=== PATIENT | male | born 1970 | race Two or more races ===

== ENCOUNTER 2022-07-07 19:03 | Emergency (ER) | payer OTHER ==
[2022-07-07] MEDS ORDERED: Sodium Chloride 0.9% 1,000 ML IV ONE ×2 (19:13→20:50)
[2022-07-07] MEDS ORDERED: Prochlorperazine 10 MG/2 ML SDV IVPUSH ONE (19:13)
[2022-07-07] MEDS ORDERED: Ketorolac 30 MG/ML SDV IVPUSH ONE (19:13)
[2022-07-07] MEDS ORDERED: Sodium Chloride 0.9% 10 ML Syringe FLUSH PRN (19:13)
[2022-07-07] MEDS ORDERED: HYDROmorphone 1 MG/ML Syringe IVPUSH ONE (19:13)
[2022-07-07] MEDS ORDERED: Sodium Chloride 0.9% 2.5 ML Syringe FLUSH PRN (19:13)
[2022-07-07 19:45] LABS: BASOPHILS PERCENT AUTO 0.1 % (0.0-1.5); EOSINOPHILS PERCENT AUTO 0.2 % (0.0-7.0); HEMATOCRIT 43.1 % (38.0-50.0); HEMOGLOBIN 14.9 g/dL (13.0-17.0); LYMPHOCYTES ABSOLUTE AUTO 2.7 K/uL (0.6-2.4); LYMPHOCYTES PERCENT AUTO 18.8 % (16.0-40.0); MEAN CORPUSCULAR HEMOGLOBIN 31.5 pg (27.0-32.0); MEAN CORPUSCULAR HGB CONC 34.6 g/dL (31.0-37.0); MEAN CORPUSCULAR VOLUME 91.1 fL (80.0-98.0); MONOCYTES ABSOLUTE AUTO 0.9 K/uL (0.0-0.8); MONOCYTES PERCENT AUTO 6.2 % (0.0-15.0); NEUTROPHILS ABSOLUTE AUTO 10.9 K/uL (1.4-5.7); NEUTROPHILS PERCENT AUTO 74.7 % (48.0-80.0); NRBC ABSOLUTE 0 K/uL; PLATELET COUNT,PLT 181 K/uL (150-400); RED BLOOD CELL COUNT 4.73 M/uL (4.50-5.90); WHITE BLOOD CELL COUNT,WBC 14.56 K/uL (4.0-11.0)
[2022-07-07 19:54] LABS: APPEARANCE,URINE CLEAR; BILIRUBIN,URINE NEGATIVE (NEGATIVE); COLOR,URINE YELLOW; GLUCOSE,URINE NEGATIVE (NEGATIVE); KETONES,URINE 15 mg/dL (NEGATIVE); LEUKOCYTE ESTERASE,URINE NEGATIVE (NEGATIVE); NITRITE,URINE NEGATIVE (NEGATIVE); OCCULT BLOOD,URINE SMALL (NEGATIVE); PH,URINE 5.5 (5.0-8.0); PROTEIN,URINE NEGATIVE (NEGATIVE); UROBILINOGEN,URINE 0.2 EU/dL (<2.0)
[2022-07-07 19:56] LABS: INR 0.98 (0.86-1.11)
[2022-07-07 20:02] LABS: EPITHELIAL CELLS,URINE RARE (NONE-FEW); RBC,URINE 0-4 (0-2/HPF); WBC,URINE 0-1 (0-5/HPF)
[2022-07-07 20:03] LABS: BACTERIA,URINE FEW (NEGATIVE); MUCUS,URINE OCCASIONAL (NONE-MOD)
[2022-07-07 20:07] LABS: ALBUMIN 3.3 g/dL (3.4-5.0); BILIRUBIN TOTAL 0.7 mg/dL (0.2-1.0); CALCIUM 8.1 mg/dL (8.5-10.1); CARBON DIOXIDE,CO2 27.4 mmol/L (21.0-32.0); CREATININE 1.2 mg/dL (0.8-1.3); EST CRCL DRUG DOSING (CG) 68.88 mL/min; POTASSIUM,K 3.6 mmol/L (3.5-5.1); PROTEIN TOTAL,TP 7.2 g/dL (6.4-8.2)
[2022-07-07 20:09] LABS: LACTIC ACID 0.5 mmol/L (0.4-2.0)
[2022-07-07 20:10] LABS: A/G RATIO 0.9 (0.9-1.6)
[2022-07-07] MEDS ORDERED: Iopamidol 755 MG/ML 500 ML Multipack Bottle IVPUSH ONE (20:23)
[2022-07-07] MEDS ORDERED: Azithromycin 250 MG Tab PO ONE (21:42)
== END 2022-07-07 22:15 | disposition home or self-care (01) ==
LOC: MW.ED 19:03
DX: A09 Infectious gastroenteritis and colitis, unspecified (principal); E86.0 Dehydration
CPT/HCPCS: 36415; 74177; 80053; 81001; 83605; 83690; 85025; 85610; 96361; 96374; 96375; 99284; A9270; J0780; J1170; J1885; J3490; J7030; Q9967

== ENCOUNTER 2022-07-09 18:54 | Emergency (ER) | payer OTHER ==
[2022-07-09] MEDS ORDERED: Sodium Chloride 0.9% 10 ML Syringe FLUSH PRN (19:24)
[2022-07-09] MEDS ORDERED: Sodium Chloride 0.9% 20 ML SDV IV PRN (19:24)
[2022-07-09] MEDS ORDERED: Sodium Chloride 0.9% 2.5 ML Syringe FLUSH PRN (19:24)
[2022-07-09] MEDS ORDERED: Sodium Chloride 0.9% 1,000 ML IV STA (19:24)
[2022-07-09] MEDS ORDERED: metroNIDAZOLE/Normal Saline 500 MG in Premix Bag 1 BAG IV ONE (19:26)
[2022-07-09] MEDS ORDERED: cefTRIAXone 2 GM in Sodium Chloride 0.9% 50 ML IV ONE (19:26)
[2022-07-09] MEDS ORDERED: HYDROmorphone 1 MG/ML Syringe IVPUSH ONE ×2 (19:26→22:49)
[2022-07-09] MEDS ORDERED: Ondansetron 4 MG/2 ML SDV IVPUSH ONE (19:26)
[2022-07-09 19:44] LABS: HEMATOCRIT 42.2 % (38.0-50.0); HEMOGLOBIN 14.7 g/dL (13.0-17.0); MEAN CORPUSCULAR HEMOGLOBIN 31.6 pg (27.0-32.0); MEAN CORPUSCULAR HGB CONC 34.8 g/dL (31.0-37.0); MEAN CORPUSCULAR VOLUME 90.8 fL (80.0-98.0); NRBC ABSOLUTE 0 K/uL; PLATELET COUNT,PLT 166 K/uL (150-400); RED BLOOD CELL COUNT 4.65 M/uL (4.50-5.90); WHITE BLOOD CELL COUNT,WBC 15.85 K/uL (4.0-11.0)
[2022-07-09] MEDS ORDERED: Pantoprazole 80 MG in Sodium Chloride 0.9% 10 ML IVPUSH ONE (19:48)
[2022-07-09 19:59] LABS: LYMPHOCYTES PERCENT MAN 25 % (16.0-40.0); MONOCYTES PERCENT MAN 6 % (0.0-15.0); SEG NEUTROPHILS ABSOLUTE MAN 10.9 (1.4-5.7); SEG NEUTROPHILS PERCENT MAN 69 % (48.0-80.0)
[2022-07-09 20:07] LABS: A/G RATIO 0.7 (0.9-1.6); ALBUMIN 2.5 g/dL (3.4-5.0); BILIRUBIN TOTAL 0.5 mg/dL (0.2-1.0); CARBON DIOXIDE,CO2 25.3 mmol/L (21.0-32.0); CREATININE 1.1 mg/dL (0.8-1.3); EST CRCL DRUG DOSING (CG) 75.14 mL/min; MAGNESIUM 2.2 mg/dL (1.8-2.4); PHOSPHORUS 3.7 mg/dL (2.6-4.7); PROTEIN TOTAL,TP 6.2 g/dL (6.4-8.2)
[2022-07-09] MEDS ORDERED: Iopamidol 755 MG/ML 500 ML Multipack Bottle IVPUSH ONE (20:23)
[2022-07-09 20:48] LABS: INR 0.98 (0.86-1.11); PTT,PARTIAL THROMBOPLSTIN TIME 22.5 SEC (23.9-30.7)
[2022-07-09] MEDS ORDERED: Sodium Chloride 0.9% 1,000 ML IV SCH (23:00)
== END 2022-07-09 23:30 ==
LOC: MW.ED 18:54
DX: A41.9 Sepsis, unspecified organism (principal); A09 Infectious gastroenteritis and colitis, unspecified
CPT/HCPCS: 36415; 74177; 80053; 82272; 83605; 83690; 83735; 84100; 85025; 85610; 85730; 86850; 86900; 86901; 87040; 87045; 87046; 87324; 87449; 87899; 96365; 96367; 96375; 96376; 99285; C9113; J0696; J1170; J2405; J3490; J7030; Q9967

== ENCOUNTER 2024-06-05 06:34 | Day surgery (SDC) | payer OTHER ==
[~2024-06-05 06:34] MED LIST: Sodium Chloride 0.9% 10 ML Syringe FLUSH PRN; Sodium Chloride 0.9% 2.5 ML Syringe FLUSH PRN; Sodium Chloride 0.9% 20 ML SDV IV PRN; ceFAZolin 2 GM in Sodium Chloride 0.9% 50 ML IV ONE
[2024-06-05] MEDS ORDERED: Bupivacaine 0.5% 30 ML SDV ONE (07:12)
[2024-06-05] MEDS: Lactated Ringers 1,000 ML IV SCH (07:18)
[2024-06-05] MEDS ORDERED: Ropivacaine 0.5% 5 MG/ML 30 ML SDV ONE (07:28)
[2024-06-05] MEDS ORDERED: Propofol 200 MG/20 ML SDV ONE (07:29)
[2024-06-05] MEDS ORDERED: Lidocaine 1% 5 ML VIAL ONE (07:29)
[2024-06-05] MEDS ORDERED: Midazolam 1 MG/ML 2 ML SDV ONE (07:29)
[2024-06-05] MEDS ORDERED: Dexamethasone 4 MG/ML 5 ML MDV ONE (07:29)
[2024-06-05] MEDS ORDERED: fentaNYL 100 MCG/2 ML SDV ONE (07:29)
[2024-06-05] MEDS ORDERED: Ondansetron 4 MG/2 ML SDV ONE (07:29)
[2024-06-05] MEDS ORDERED: Sodium Chloride 0.9% 20 ML ONE (07:30)
[2024-06-05] MEDS ORDERED: dexmedeTOMIDine HCl 200 MCG/2 ML SDV ONE (07:30)
[2024-06-05] MEDS ORDERED: Albuterol 0.083% 2.5 MG/3 ML Neb Soln NEB PRN (08:15)
[2024-06-05] MEDS ORDERED: Phenylephrine HCl In 0.9% NaCl 1 MG/10 ML Syringe IVPUSH PRN (08:15)
[2024-06-05] MEDS ORDERED: Naloxone 0.4 MG/ML SDV IVPUSH PRN (08:15)
[2024-06-05] MEDS ORDERED: Morphine 2 MG/ML SYRINGE IVPUSH PRN (08:15)
[2024-06-05] MEDS ORDERED: fentaNYL 50 MCG/ML SDV IVPUSH PRN (08:15)
[2024-06-05] MEDS ORDERED: Ondansetron 4 MG/2 ML SDV IVPUSH PRN (08:15)
[2024-06-05] MEDS ORDERED: Metoclopramide 10 MG/2 ML SDV IVPUSH PRN (08:15)
[2024-06-05] MEDS ORDERED: HYDROmorphone 1 MG/ML Syringe IVPUSH PRN (08:15)
[2024-06-05] MEDS ORDERED: ceFAZolin 2 GM Vial ONE (08:22)
[2024-06-05] MEDS ORDERED: Sugammadex Sodium 200 MG/2 ML VIAL IV ONE (09:01)
== END 2024-06-05 11:30 | disposition home or self-care (01) ==
LOC: MW.SDS 06:34 → EEVIPCON 11:15 → MW.SDS 11:30
PROVIDERS: ATTEND Surgery
DX: K42.9 Umbilical hernia without obstruction or gangrene (principal); I10 Essential (primary) hypertension; Z87.891 Personal history of nicotine dependence; Z79.899 Other long term (current) drug therapy
CPT/HCPCS: 49591; 64488; J0665; J0690; J1100; J2003; J2250; J2704; J2795; J3010; J7120; C1781; J2405; J3490